=== PATIENT | male | born 1945 | race Caucasian/White ===

== ENCOUNTER 2024-11-10 12:45 | Inpatient (IN) | payer MEDICARE ==
[2024-11-10] MEDS ORDERED: Acetaminophen 500 MG TAB ONE (13:07)
[2024-11-10] MEDS ORDERED: cefTRIAXone (ROCEPHIN) 2 GM VIAL ONE (13:07)
[2024-11-10] MEDS ORDERED: Azithromycin 500 MG VIAL ONE (13:07)
[2024-11-10 13:43] LABS: Hematocrit 32.7 % (42.0-52.0); Hemoglobin 9.8 g/dL (14.0-18.0); Mean Corpuscular Hemoglobin 23.2 pg (27.0-31.0); Mean Corpuscular Volume 77.5 fL (78.0-98.0); Platelet Count 282 10x3/uL (130-400); RBC Distribution Width 29.5 % (11.5-14.5); Red Blood Cell (RBC) Count 4.22 mill/uL (4.70-6.10)
[2024-11-10 14:00] LABS: ALT (SGPT) 8 U/L (Less than 45); AST (SGOT) 27 U/L (11-34); Albumin 3.3 g/dL (3.1-4.5); Alkaline Phosphatase 69 U/L (40-110); Anion Gap 17 mmol/L (10-20); BUN (Urea Nitrogen) 38 mg/dL (8.4-25.7); Bilirubin, Total 1.3 mg/dL (0.3-1.2); Calc. Creatinine Clearance 0 mL/min (70-130); Calcium 9.1 mg/dL (7.8-10.44); Carbon Dioxide 24 mmol/L (23-31); Chloride 101 mmol/L (98-107); Estimated GFR 44; Globulin 4.4 g/dL (2.4-3.5); Glucose 171 mg/dL (83-110); Magnesium 2.1 mg/dL (1.6-2.6); Potassium 3.7 mmol/L (3.5-5.1); Protein, Total 7.7 g/dL (5.8-8.1); Sodium 138 mmol/L (136-145)
[2024-11-10 14:03] LABS: Troponin I 0.049 ng/mL (< 0.028)
[2024-11-10 14:05] LABS: Bacteria/HPF None Seen HPF (None Seen); Bilirubin Negative (Negative); CAUTI Indications for Culture Fever or rigors; Clarity Clear (Clear); Glucose, Urine (Dipstick) Normal (Negative); Ketone, Urine Negative (Negative); Leukocyte Negative Leu/uL (Negative); Nitrite Negative (Negative); Protein, Urine (Dipstick) 30 mg/dL (Neg-Trace); Specific Gravity, Urine 1.015 (1.002-1.036); Squamous Epithelial 0-3 HPF (0-3); Urobilinogen Normal mg/dL (Less than 2); WBC/HPF 0-3 HPF (0-3)
[2024-11-10 14:06] LABS: Anisocytosis MODERATE=16-30 cells HPF (0-5); Band 17 % (5-11); Blood, Urine Trace (Negative); Hypochromia SLIGHT = 6-15 cells HPF (0-5); Lymphocytes 2 % (21-51); Microcytosis SLIGHT = 6-15 cells HPF (0-5); Monocytes 8 % (0-10); Neutrophil 73 % (42-75); Platelet Adequacy Comment Platelets Normal; Polychromasia MODERATE = 3-4 cells HPF (0-2); Schistocytes SLIGHT = 2-5 cells HPF (0-1)
[2024-11-10 14:07] LABS: Urine Culture Reflex No No
[2024-11-10] MEDS ORDERED: Ondansetron ODT 4 MG TAB PO PRN (15:44)
[2024-11-10 18:03] LABS: Troponin I 0.074 ng/mL (< 0.028)
[2024-11-10 18:10] LABS: Lactic Acid 1.75 mmol/L (0.50-2.20)
[2024-11-10] MEDS: Sodium Chloride 0.9% 500 ML IV SCH (19:37)
[2024-11-10 19:59] VITALS: BMI 32.2
[2024-11-11 05:17] LABS: Hemoglobin 8.2 g/dL (14.0-18.0); Mean Corpuscular HGB CONC 29.3 g/dL (32.0-36.0); Mean Corpuscular Volume 78.4 fL (78.0-98.0); Mean Platelet Volume 10.4 fL (7.4-10.4); Platelet Count 237 10x3/uL (130-400); RBC Distribution Width 29.2 % (11.5-14.5); Red Blood Cell (RBC) Count 3.57 mill/uL (4.70-6.10)
[2024-11-11 05:22] LABS: ALT (SGPT) 12 U/L (Less than 45); AST (SGOT) 35 U/L (11-34); Albumin 2.7 g/dL (3.1-4.5); Alkaline Phosphatase 59 U/L (40-110); Anion Gap 14 mmol/L (10-20); BUN (Urea Nitrogen) 39 mg/dL (8.4-25.7); Bilirubin, Total 0.9 mg/dL (0.3-1.2); Calc. Creatinine Clearance 57 mL/min (70-130); Calcium 8.7 mg/dL (7.8-10.44); Carbon Dioxide 26 mmol/L (23-31); Chloride 103 mmol/L (98-107); Estimated GFR 49; Globulin 3.7 g/dL (2.4-3.5); Glucose 122 mg/dL (83-110); Potassium 3.5 mmol/L (3.5-5.1); Protein, Total 6.4 g/dL (5.8-8.1); Sodium 139 mmol/L (136-145)
[2024-11-11 05:55] LABS: Anisocytosis MODERATE=16-30 cells HPF (0-5); Band 4 % (5-11); Hypochromia SLIGHT = 6-15 cells HPF (0-5); Large Platelets 12.9 % (0-5); Lymphocytes 4 % (21-51); Microcytosis SLIGHT = 6-15 cells HPF (0-5); Monocytes 5 % (0-10); Neutrophil 87 % (42-75); Platelet Adequacy Comment Platelets Normal; Polychromasia SLIGHT = 2-3 cells HPF (0-2); Smudge Cells 7.9 %
[2024-11-11] MEDS: Rivaroxaban 15 MG TAB PO SCH (09:07)
[2024-11-11] MEDS: cefTRIAXone\\ROCEPHIN 2 GM in Sodium Chloride 0.9% 100 ML IVPB SCH (13:52)
[2024-11-11] MEDS: Torsemide 20 MG TAB PO SCH (13:52)
[2024-11-11] MEDS: Escitalopram Oxalate 10 mg Tablet PO SCH (13:52)
[2024-11-11] MEDS: Potassium Chloride 10 MEQ TAB PO SCH (13:52)
[2024-11-11] MEDS: Ferrous Sulfate 325 MG TAB PO SCH (13:53)
[2024-11-11] MEDS: Azithromycin 500 MG in Sodium Chloride 0.9% 250 ML 250 ML IVPB SCH (16:49)
[2024-11-11] MEDS: Acetaminophen 325 MG TAB PO PRN (17:00)
[2024-11-12] MEDS: Rosuvastatin 10 MG TAB PO SCH (08:06)
[2024-11-12] MEDS: Ferrous Sulfate 325 MG TAB PO SCH (08:07)
[2024-11-12] MEDS: Potassium Chloride 10 MEQ TAB PO SCH (08:08)
[2024-11-12] MEDS: Torsemide 20 MG TAB PO SCH (08:09)
[2024-11-12] MEDS: Tamsulosin HCl 0.4 MG CAP PO SCH (08:09)
[2024-11-12] MEDS: Escitalopram Oxalate 10 mg Tablet PO SCH (08:11)
[2024-11-12 09:31] LABS: Anion Gap 13 mmol/L (10-20); BUN (Urea Nitrogen) 33 mg/dL (8.4-25.7); Calc. Creatinine Clearance 64 mL/min (70-130); Calcium 8.7 mg/dL (7.8-10.44); Carbon Dioxide 25 mmol/L (23-31); Chloride 100 mmol/L (98-107); Estimated GFR 57; Glucose 215 mg/dL (83-110); Potassium 3.9 mmol/L (3.5-5.1); Sodium 134 mmol/L (136-145)
[2024-11-12 09:39] LABS: Hematocrit 29.1 % (42.0-52.0); Hemoglobin 8.5 g/dL (14.0-18.0); Mean Corpuscular HGB CONC 29.2 g/dL (32.0-36.0); Mean Corpuscular Volume 78.9 fL (78.0-98.0); Mean Platelet Volume 9.8 fL (7.4-10.4); Platelet Count 271 10x3/uL (130-400); RBC Distribution Width 28.6 % (11.5-14.5); Red Blood Cell (RBC) Count 3.69 mill/uL (4.70-6.10)
[2024-11-12 10:03] LABS: Anisocytosis MARKED = >30 cells HPF (0-5); Hypochromia SLIGHT = 6-15 cells HPF (0-5); Macrocytosis MODERATE=16-30 cells HPF (0-5); Ovalocytes SLIGHT = 2-5 cells HPF (0-1); Platelet Adequacy Comment Platelets Normal; Polychromasia MARKED = >4 cells HPF (0-2)
[2024-11-12 10:04] LABS: #Basophils Less than 0.03 10x3/uL (0.0-0.2); #Eosinophils Less than 0.03 10x3/uL (0.0-0.7); %Basophils 0.3 % (0.0-1.0); %Eosinophils 0.1 % (0.0-10.0); %Lymphocytes 3.9 % (21.0-51.0); %Monocytes 9.6 % (0.0-10.0); %Neutrophils 85.6 % (42.0-75.0)
[2024-11-12 12:31] VITALS: BP 157/83; TEMP 98.4
== END 2024-11-12 15:30 | disposition home or self-care (01) | DRG 871 ==
LOC: ERS 12:45 → SUATTDRO 12:45 → ERHOLD 15:29 → 2NO 18:12 → OBSVTOIN 11-11 15:56
PROVIDERS: ADMIT Family Medicine; ATTEND Internal Medicine
DX: A41.9 Sepsis, unspecified organism (principal); J18.9 Pneumonia, unspecified organism; J98.11 Atelectasis; N18.30 Chronic kidney disease, stage 3 unspecified; I48.0 Paroxysmal atrial fibrillation; D50.9 Iron deficiency anemia, unspecified; S31.000A Unspecified open wound of lower back and pelvis without penetration into retroperitoneum, initial encounter; R32 Unspecified urinary incontinence; Z95.2 Presence of prosthetic heart valve; Z79.899 Other long term (current) drug therapy; Z79.02 Long term (current) use of antithrombotics/antiplatelets
CPT/HCPCS: 36415; 71045; 80048; 80053; 81001; 83605; 83735; 83880; 84145; 84484; 85025; 87040; 87086; 87428; 93005; 96365; 96367; 96376; 97139; G0378; J0456; J0696; J7050